=== PATIENT | female | born 1995 | race Caucasian/White ===

== ENCOUNTER → 2016-05-16 | Outpatient (CLI) | payer BC ==
--- NOTE | 2016-05-16 08:51 | DI ---
Indication: ITS.REASON: [id number] INJURY PROCEDURE: MRI LUMBAR SPINE W/O CONTRAST: Encounter: Initial Comparison: None Technique: Multiplanar multisequence MR imaging of the lumbar spine was performed without contrast. Findings: Alignment of the lumbar spine is within normal limits. Bone marrow signal intensity is normal. No acute fracture. No spondylolysis identified. Conus medullaris terminates normally at L1. The paraspinal soft tissues are within normal limits. Segmental analysis: L1-L2: Normal L2-L3: Normal L3-L4: Normal L4-L5: Normal L5-S1: Normal Impression: Normal exam. .
== END ==
LOC: IMA 06:36
PROVIDERS: ATTEND Family Medicine Sports Medicine
DX: Z03.89 Encounter for observation for other suspected diseases and conditions ruled out (principal)